=== PATIENT | male | born 1970 | race Caucasian/White ===

== ENCOUNTER 2017-11-23 13:52 | Emergency (ER) | payer SELFPAY ==
[~2017-11-23] VITALS: Ht 185.4 cm; Wt 92.0 kg
[2017-11-23 13:57] VITALS: BP 142/71; PULSE 96; RESP 16; TEMP 98.9; O2SAT 99
[2017-11-23 14:05] LABS: BILIRUBIN, URINE NEG (NEG); BLOOD, URINE LARGE (NEG); GLUCOSE,URINE NEG (NEG); KETONE, URINE TRACE mg/dL (NEG); NITRITE,URINE POS (NEG); PH, URINE 5.5 (5.0-8.5); URINE LEUKOCYTE ESTERASE SMALL (NEG)
[2017-11-23 14:06] LABS: URINE COLOR BROWN (YELLW/STRAW)
[2017-11-23 14:12] LABS: BACTERIA, URINE MANY /hpf; RBC, URINE 100-200 /hpf (0-3)
[2017-11-23] MEDS ORDERED: CIPROFLOXACIN 500 MG TAB PO ONE (15:00)
[2017-11-23] MEDS ORDERED: CIPR-9 PO (15:01)
[2017-11-23] MEDS ORDERED: HYDR-3288 PO (15:02)
[2017-11-23] MEDS ORDERED: PHEN0.4T PO (15:02)
--- NOTE | 2017-11-23 15:03 | PD ---
HPI Chief Complaint: Flank/Kidney Pain Time Seen by Provider: 14:49 Travel History International Travel<30 days: No Contact w/Intl Traveler<30days: No Traveled to known affect area: No History of Present Illness HPI This 47-year-old male is complaining of lower abdominal pain. He is having some discomfort in the perineal area. He had some fever a few days ago. He has pain after he urinates. He has never had trouble like this before. He is generally healthy. There is no history of trauma. There is no flank pain. There is no vomiting or diarrhea he has noted blood in the urine. Discomfort is intermittent it is quite severe at times and has disrupted his sleeping PFSH Past Medical History Medical History: Denies Significant Hx Diminished Hearing: No Immunizations Current: Yes Tetanus Vaccination: > 5 Years Influenza Vaccination: No Past Surgical History Surgical History: No Previous Surgery Social History Alcohol Use: No Tobacco Use: Yes (2 cigars) Substance Use: No Allergies-Medications (Allergen,Severity, Reaction): Coded Allergies: No Known Allergies (Unverified , 11/23/17) Reported Meds & Prescriptions Reported Meds & Active Scripts Active No Active Prescriptions or Reported Medications Review of Systems General / Constitutional: Positive: Fever, No: Chills Eyes: No: Diploplia Cardiovascular: No: Chest Pain or Discomfort Respiratory: No: Cough Gastrointestinal: No: Nausea, Vomiting Genitourinary: Positive: Urgency, Frequency, Dysuria, Hematuria, Decreased Urinary Output Skin: No Rash Neurologic: No: Weakness, Dizziness Psychiatric: No: Anxiety Hematologic/Lymphatic: No: Easy Bruising Physical Exam Narrative GENERAL: Well-developed male SKIN: Focused skin assessment warm/dry. HEAD: Atraumatic. Normocephalic. EYES: Pupils equal and round. No scleral icterus. No injection or drainage. ENT: No nasal bleeding or discharge. Mucous membranes pink and moist. NECK: Trachea midline. No JVD. GASTROINTESTINAL: Abdomen soft, non-tender, nondistended. Hepatic and splenic margins not palpable. There is no CVA tenderness MUSCULOSKELETAL: No obvious deformities. No clubbing. No cyanosis. No edema. NEUROLOGICAL: Awake and alert. No obvious cranial nerve deficits. Motor grossly within normal limits. Normal speech. PSYCHIATRIC: Appropriate mood and affect; insight and judgment normal. Data Data Last Documented VS Vital Signs Date Time Temp Pulse Resp B/P (MAP) Pulse Ox O2 Delivery O2 Flow Rate FiO2 11/23/17 13:57 98.9 96 16 142/71 (94) 99 Orders Orders Urinalysis - C+S If Indicated (11/23/17 13:54) Urine Culture (11/23/17 14:00) Ciprofloxacin (Cipro) (11/23/17 15:00) Labs Laboratory Tests Test 11/23/17 14:00 Urine Color BROWN Urine Turbidity TURBID Urine pH 5.5 Urine Specific [place] GREATER/EQUAL 1.030 Urine Protein 300 OR GREATER mg/dL Urine Glucose (UA) NEG mg/dL Urine Ketones TRACE mg/dL Urine Occult Blood LARGE Urine Nitrite POS Urine Bilirubin NEG Urine Urobilinogen 1.0 MG/DL Urine Leukocyte Esterase SMALL Urine RBC 100-200 /hpf Urine WBC 50-99 /hpf Urine Bacteria MANY /hpf Microscopic Urinalysis Comment CULTURE INDICATED MDM Medical Decision Making Medical Screen Exam Complete: Yes Emergency Medical Condition: Yes Medical Record Reviewed: Yes Differential Diagnosis Differential includes cystitis, prostatitis, bladder tumor Narrative Course Urinalysis shows large number of white cells as well as red cells. The patient will be started on Cipro. The importance of urology follow-up was stressed to the patient Diagnosis Primary Impression: Prostatitis Scripts Hydrocodone-Acetaminophen ([place]) 7.5-325 mg Tab 1 TAB PO Q4H Y for PAIN, #12 TAB 0 Refills Prov: Lemuel Brannon MD 11/23/17 Phenazopyridine (Pyridium) 100 Mg Tab 100 MG PO Q8H Y for DYSURIA, #10 TAB 0 Refills Prov: Lemuel Brannon MD 11/23/17 Ciprofloxacin (Cipro) 500 Mg Tab 500 MG PO BID for Infection for 14 Days, #28 TAB 0 Refills Prov: Lemuel Brannon MD 11/23/17 Disposition: 01 DISCHARGE HOME Condition: Stable Lemuel Brannon MD November 23, 2017 15:03
[2017-11-23 15:20] VITALS: BP 150/81
== END 2017-11-23 15:21 | disposition home or self-care (01) ==
LOC: PHED 13:52
DX: N41.9 Inflammatory disease of prostate, unspecified (principal); B96.20 Unspecified Escherichia coli [E. coli] as the cause of diseases classified elsewhere; F17.290 Nicotine dependence, other tobacco product, uncomplicated
CPT/HCPCS: 81001; 87077; 87086; 87186; 99283